=== PATIENT | male | born 1955 | race Caucasian/White ===

== ENCOUNTER 2022-03-18 10:21 | Emergency (ER) | payer MEDICARE ==
[~2022-03-18] VITALS: Ht 172.7 cm; Wt 77.1 kg
[2022-03-18 10:22] VITALS: BP 150/70
[2022-03-18] MEDS ORDERED: KETOROLAC 60 MG/2 ML VIAL IM ONE (10:30)
[2022-03-18] MEDS ORDERED: MORPHINE SULFATE 4 MG/ML SYR IM ONE (10:30)
--- NOTE | 2022-03-18 10:49 | NUR ---
S/W PATIENTS SISTER ROBIN SONI
--- NOTE | 2022-03-18 10:51 | NUR ---
PT C/O LOWER BACK PAIN SINCE THIS AM, HX OF SCIATIC STATES FEELS SIMILAR
--- NOTE | 2022-03-18 12:00 | NUR ---
PT AMBULATES IN ROOM WITH STEADY GAIT
--- NOTE | 2022-03-18 12:15 | NUR ---
Patient discharged with v/s stable. Written and verbal after care instructions given and explained. Patient verbalized understanding. Ambulatory with steady gait. All questions addressed prior to discharge. Advised to follow up with PMD.
[2022-03-18 12:16] VITALS: BP 141/70
== END 2022-03-18 12:15 | disposition home or self-care (01) ==
LOC: MED 10:21
DX: M54.32 Sciatica, left side (principal)
CPT/HCPCS: 96372; 99284; J1885; J2270

== ENCOUNTER 2023-03-02 18:07 | Emergency (ER) | payer MEDICARE, OTHER ==
[~2023-03-02] VITALS: Ht 188 cm; Wt 94.6 kg
[2023-03-02 18:31] VITALS: BP 138/79; PULSE 89; RESP 20; TEMP 98; O2SAT 96
[2023-03-02 18:55] LABS: BASOPHILS % (AUTO) 0.5 % (0.0-2.0); EOSINOPHILS # (AUTO) 0.1 K/uL (0-0.4); HEMATOCRIT 47.5 % (36-52); LYMPHOCYTES # (AUTO) 1.8 K/uL (2.0-11.5); LYMPHOCYTES % (AUTO) 21.3 % (20.5-51.1); MEAN CORPUSCULAR HEMOGLOBIN 31 pg (27-31); MEAN CORPUSCULAR HGB CONC 34 g/dL (33-37); MEAN CORPUSCULAR VOLUME 91.6 fL (80-94); MONOCYTES # (AUTO) 0.5 K/uL (0.8-1.0); MONOCYTES % (AUTO) 6.3 % (1.7-9.3); NEUTROPHILS # (AUTO) 6.2 K/uL (1.8-7.7); NEUTROPHILS % (AUTO) 70.9 % (42.2-75.2); PLATELET COUNT (AUTO) 169 K/uL (140-450); RED BLOOD CELL COUNT(AUTO) 5.19 MIL/uL (4.20-6.10); RED CELL DISTRIBUTION WIDTH 14.2 % (11.6-13.7); WHITE BLOOD COUNT (AUTO) 8.7 K/uL (4.8-10.8)
[2023-03-02 19:11] LABS: INR 0.99 (0.8-1.2); PARTIAL THROMBOPLASTIN TIME 27.4 secs (22-35.6); PROTHROMBIN TIME 10.4 secs (10.8-13.4)
[2023-03-02 19:13] LABS: ALBUMIN 3.9 g/dL (3.4-5.0); ANION GAP 11.8 (8-16); CALCIUM 9.2 mg/dL (8.5-10.1); CARBON DIOXIDE 26.9 mmol/L (21-32); CREATININE 1.1 mg/dL (0.6-1.3); POTASSIUM 3.7 mmol/L (3.5-5.1); TOTAL BILIRUBIN 0.6 mg/dL (0.0-1.0); TOTAL PROTEIN, SERUM 7.6 g/dL (6.4-8.2)
[2023-03-02 19:18] VITALS: TEMP 98
[2023-03-02] MEDS ORDERED: ASPIRIN 325 MG TAB PO ONE (19:30)
[2023-03-02 23:31] VITALS: BP 125/80; PULSE 78; RESP 13; O2SAT 97
== END 2023-03-03 02:05 | disposition short-term general hospital (02) ==
LOC: MED 18:07
DX: I21.4 Non-ST elevation (NSTEMI) myocardial infarction (principal); Z20.822 Contact with and (suspected) exposure to COVID-19; I48.91 Unspecified atrial fibrillation; I10 Essential (primary) hypertension; E78.5 Hyperlipidemia, unspecified; Z88.0 Allergy status to penicillin
CPT/HCPCS: 36415; 71045; 80053; 83880; 84484; 85025; 85610; 85730; 93005; 99285

== ENCOUNTER 2023-10-02 13:18 | Emergency (ER) | payer OTHER ==
[~2023-10-02] VITALS: Ht 188 cm; Wt 90.7 kg
[2023-10-02 13:46] VITALS: BP 132/70; PULSE 77; RESP 14; TEMP 97; O2SAT 95
[2023-10-02] MEDS ORDERED: DOXY-690 PO (16:22)
[2023-10-02] MEDS ORDERED: AZIT250T4 PO (16:22)
[2023-10-02 16:37] VITALS: BP 130/72; PULSE 79; RESP 16; TEMP 97.6; O2SAT 98
== END 2023-10-02 16:37 | disposition home or self-care (01) ==
LOC: MED 13:18
DX: J20.9 Acute bronchitis, unspecified (principal); I48.91 Unspecified atrial fibrillation; I10 Essential (primary) hypertension; Z98.890 Other specified postprocedural states; Z79.2 Long term (current) use of antibiotics; Z79.899 Other long term (current) drug therapy; Z88.0 Allergy status to penicillin
CPT/HCPCS: 71046; 99282; 99283